=== PATIENT | female | born 1970 | race Caucasian/White ===

== ENCOUNTER 2020-09-27 11:34 | Emergency (ER) | payer BC, OTHER ==
[2020-09-27 15:25] LABS: Absolute Lymphocytes (CBC) 1.6 K/uL (0.7-4.9); Basophils % 0.7 % (0-1.3); Hematocrit 45.1 % (36.0-45.0); Lymphocytes % 24.1 % (15.3-44.8); MPV 8.2 fL (7.6-11.3); RBC Red Blood Cell Count 5.01 M/uL (3.86-4.86)
[2020-09-27 15:26] LABS: Protime INR 1.13
[2020-09-27] MEDS ORDERED: NA CHLORIDE 0.9% 1,000 ML ONE (15:46)
[2020-09-27 15:50] LABS: BUN Blood Urea Nitrogen 7 mg/dL (7-18); Bicarbonate 22 mmol/L (21-32); Glucose Level 96 mg/dL (74-106); Magnesium 2.2 mg/dL (1.8-2.4); Potassium 3.5 mmol/L (3.5-5.1); Sodium Level 140 mmol/L (136-145); Thyroid Stimulating Hormone 0.874 uIU/mL (0.360-3.740); Troponin I < 0.02 ng/mL (0.0-0.045)
[2020-09-27 16:13] LABS: T3 Free 2.76 pg/mL (2.18-3.98)
--- NOTE | 2020-09-27 16:42 | ER ---
Nurse's Notes [facility] Name: Chiara Irvin Age: 50 yrs Sex: Female : 1970 Arrival Date: 09/27/2020 Time: 11:34 Bed 25 Private MD: Diagnosis: Anxiety disorder, unspecified Presentation: 09/27 12:10 Chief complaint: Patient states: my mind starts racing and thinking of lots of stuff, iw feels like anxiety, is on two different medication gabapentin and tizanidine, increased tizanidine , started Saturday , my daughter ran away night and it exacerbated the anxiety. Coronavirus screen: At this time, the client does not indicate any symptoms associated with coronavirus-19. Ebola Screen: Patient negative for fever greater than or equal to 101.5 degrees Fahrenheit, and additional compatible Ebola Virus Disease symptoms Patient denies exposure to infectious person. Patient denies travel to an Ebola-affected area in the 21 days before illness onset. No symptoms or risks identified at this time. Initial Sepsis Screen: Does the patient meet any 2 criteria? No. Patient's initial sepsis screen is negative. Does the patient have a suspected source of infection? No. Patient's initial sepsis screen is negative. Risk Assessment: Do you want to hurt yourself or someone else? Patient reports no desire to harm self or others. Onset of symptoms was September 24, 2020. 12:10 Method Of Arrival: Ambulatory iw 12:10 Acuity: EREN 3 iw Historical: - Allergies: 12:12 Bactrim; iw Vital Signs: 12:10 BP 115 / 71; Pulse 112; Resp 16; Temp 98.6; Pulse Ox 100% on R/A; iw ED Course: 11:34 Patient arrived in ED. as 12:11 Triage completed. iw 14:38 Pop Davidson PA is PHCP. cp 14:38 Pop Santos MD is Attending Physician. cp 14:57 Courtney Matos, JEN is Primary Nurse. iw Administered Medications: 15:53 Drug: NS 0.9% 1000 ml Route: IV; Rate: 1 bolus; Site: right antecubital; ag2 Outcome: 16:41 Discharge ordered by MD. cp 17:12 Patient left the ED. iw Signatures: Lucita Maurer as Courtney Matos, RN RN Pop Alonso PA PA cp Garcia, Ailyn ag2
--- NOTE | 2020-09-27 16:42 | EDPHYS ---
Physician Documentation [facility] Name: Chiara Irvin Age: 50 yrs Sex: Female : 1970 Arrival Date: 09/27/2020 Time: 11:34 Bed 25 Private MD: ED Physician Pop Santos HPI: 09/27 14:50 This 50 yrs old Female presents to ER via Ambulatory with complaints of cp Anxiety, Medication Reaction, Decreased Appetite. 14:50 The patient presents to the emergency department with anxiety, recently increased cp medication Tizanidine and 15 year old daughter recently ran away from home. Daughter now at home and safe. Patient reports noticing racing heart, "impending doom" and mind racing. Symptoms started last week. Patient denies thoughts of suicide, denies hallucinations. Patient reports she takes Gabapentin also. Stopped taking both Tizanidine and Gabapentin and has noticed some improvement of symptoms. 14:50 Past psychiatric history: Prior diagnosis: no previous psychiatric diagnosis known. The cp patient presents with a history of heart racing. Historical: - Allergies: 12:12 Bactrim; iw ROS: 14:55 Constitutional: Negative for body aches, chills, fever, poor PO intake. cp 14:55 Cardiovascular: Positive for palpitations, Negative for chest pain, edema. cp 14:55 Respiratory: Positive for shortness of breath, Negative for cough, wheezing. 14:55 Abdomen/GI: Negative for abdominal pain, nausea, vomiting, and diarrhea. cp 14:55 Neuro: Negative for altered mental status, dizziness, headache, syncope, weakness. cp 14:55 Psych: Positive for anxiety, Negative for depression, auditory hallucinations, visual hallucinations, suicide gesture, suicidal ideation. 14:55 All other systems are negative. Exam: 14:59 ECG was reviewed by the Attending Physician. cp 15:03 Constitutional: The patient appears in no acute distress, alert, awake, cp non-diaphoretic, non-toxic, well developed, well nourished. 15:03 Head/Face: Normocephalic, atraumatic. cp 15:03 Eyes: Periorbital structures: appear normal, Pupils: equal, round, and reactive to light and accomodation, Extraocular movements: intact throughout, Conjunctiva: normal, no exudate, no injection, Sclera: no appreciated abnormality, Lids and lashes: appear normal, bilaterally. 15:03 ENT: External ear(s): are unremarkable, Nose: is normal, Mouth: Lips: moist, Oral mucosa: moist, Posterior pharynx: Airway: no evidence of obstruction, patent. 15:03 Neck: ROM/movement: is normal, is supple, without pain, no range of motions limitations. 15:03 Chest/axilla: Inspection: normal. 15:03 Cardiovascular: Rate: tachycardic, Rhythm: regular, Edema: is not appreciated, JVD: is not appreciated. 15:03 Respiratory: the patient does not display signs of respiratory distress, Respirations: normal, no use of accessory muscles, no retractions, labored breathing, is not present, intercostal retractions, are absent, shallow respirations, are not present, Breath sounds: are clear throughout, no decreased breath sounds, no stridor, no wheezing. 15:03 Abdomen/GI: Inspection: abdomen appears normal, Palpation: abdomen is soft and non-tender, in all quadrants. 15:03 Neuro: Orientation: to person, place \\T\\ time. Mentation: is normal, Cerebellar function: is grossly normal, Motor: moves all fours, strength is normal, Sensation: is normal. 15:03 Psych: Behavior/mood is pleasant, cooperative, Affect is calm, Patient has no thoughts/intents to harm self or others. Judgement / Insight is normal. Delusions/hallucinations are not present. Vital Signs: 12:10 BP 115 / 71; Pulse 112; Resp 16; Temp 98.6; Pulse Ox 100% on R/A; iw MDM: 14:40 Patient medically screened. cp 16:40 Data reviewed: vital signs, nurses notes, lab test result(s), EKG, and as a result, I cp will discharge patient. 16:40 Differential diagnosis: acute psychotic break, depression, arrythmia, dehydration, cp stress disorder. Test interpretation: by ED physician or midlevel provider: ECG. Counseling: I had a detailed discussion with the patient and/or guardian regarding: the historical points, exam findings, and any diagnostic results supporting the discharge/admit diagnosis, lab results, the need for outpatient follow up, a family practitioner. Response to treatment: the patient's symptoms have mildly improved after treatment, and as a result, I will discharge patient. ED course: VSS. Discussed having patient stop Tizanidine and continue Gabapentin. Will discharge to home for continued monitoring. 16:43 ED course: unable to check website of [employer] prescription monitor due to inability to cp connect to internet at this time. 09/27 14:53 Order name: CBC with Diff 09/27 14:53 Order name: BMP 09/27 14:53 Order name: PT-INR; Complete Time: 15:44 cp 09/27 15:44 Interpretation: PT 13.0; Reviewed. 09/27 14:53 Order name: Magnesium; Complete Time: 16:13 cp 09/27 16:06 Interpretation: Reviewed. 09/27 14:53 Order name: Troponin I; Complete Time: 16:13 09/27 16:06 Interpretation: TROP < 0.02; Reviewed. 09/27 14:39 Order name: Urine Dipstick-Ancillary (obtain specimen) 09/27 14:39 Order name: Urine Test (obtain specimen) 09/27 14:53 Order name: EKG; Complete Time: 14:54 cp 09/27 14:53 Order name: TSH; Complete Time: 16:13 09/27 15:55 Interpretation: Within normal limits: TSH 0.874. 09/27 14:53 Order name: T3 Free; Complete Time: 16:13 09/27 16:14 Interpretation: Within normal limits: T3F 2.76. 09/27 14:54 Order name: CBC with Automated Diff; Complete Time: 15:44 EDMS 09/27 15:44 Interpretation: Normal except: RBC 5.01; HGB 15.2; HCT 45.1. 09/27 14:54 Order name: Basic Metabolic Panel; Complete Time: 16:13 EDMS 09/27 15:55 Interpretation: Normal except: GFR 72. 09/27 14:53 Order name: EKG - Nurse/Tech cp EC:59 Rate is 92 beats/min. Rhythm is regular. MN interval is normal. QRS interval is normal. cp QT interval is normal. T waves are Inverted in lead aVR. Interpreted by me. Reviewed by me. Administered Medications: 15:53 Drug: NS 0.9% 1000 ml Route: IV; Rate: 1 bolus; Site: right antecubital; ag2 Disposition: 16:50 Chart complete. cp Disposition: 09/27/20 16:41 Discharged to Home. Impression: Anxiety disorder, unspecified. - Condition is Stable. - Discharge Instructions: Panic Attacks, Generalized Anxiety Disorder. - Prescriptions for Ativan 1 mg Oral Tablet - take 1 tablet by ORAL route every 12 hours As needed; 10 tablet. - Medication Reconciliation Form, Thank You Letter, Antibiotic Education, Prescription Opioid Use form. - Follow up: Private Physician; When: 2 - 3 days; Reason: Recheck today's complaints. - Problem is new. - Symptoms have improved. Addendum: 09/29/2020 06:59 Co-signature as Attending Physician, Pop Santos MD I agree with the assessment and c sullivan plan of care. Signatures: Dispatcher [employer] EDMS Pop Santos MD MD cha Williams, Irene, JEN RN iw Pop Davidson PA PA Ailyn Lopez ag2 Corrections: (The following items were deleted from the chart) 09/27 17:12 16:41 09/27/2020 16:41 Discharged to Home. Impression: Anxiety disorder, unspecified. iw Condition is Stable. Forms are Medication Reconciliation Form, Thank You Letter, Antibiotic Education, Prescription Opioid Use. Follow up: Private Physician; When: 2 - 3 days; Reason: Recheck today's complaints. Problem is new. Symptoms have improved. cp 09/28 16:53 09/27 14:50 The patient presents to the emergency department with anxiety, recently cp increased medication Tizanidine and 15 year old daughter recently ran away from home. Daughter now at home and safe. Patient reports noticing racing heart, "impending doom" and mind racing , cp
[2020-09-27 17:20] VITALS: BP 115/71; TEMP 98.6; O2SAT 100
== END 2020-09-27 17:12 | disposition home or self-care (01) ==
LOC: ER 11:34
DX: F41.9 Anxiety disorder, unspecified (principal); R00.2 Palpitations; R06.02 Shortness of breath
CPT/HCPCS: 85025; 80048; 36415; 83735; 85610; 84443; 84484; 84481; 99282; J7030